=== PATIENT | female | born 2000 | race Caucasian/White ===

== ENCOUNTER 2021-08-09 14:20 | Emergency (ER) | payer OTHER ==
[~2021-08-09] VITALS: Ht 172.7 cm; Wt 79.4 kg
[2021-08-09 14:45] LABS: Source, Urine Clean Catch
[2021-08-09 14:48] LABS: Appearance, Urine Clear (Clear); Bilirubin, Urine Neg (Neg); Blood, Urine 3+ (Neg); Color, Urine Yellow (P-Yellow); Glucose Qualitative, Urine Neg (Neg); Ketones, Urine Neg (Neg); Leukocyte Esterase, Urine 1+ (Neg); Nitrite, Urine Neg (Neg); Protein, Urine Neg (Neg); Urobilinogen, Urine NORM (Normal)
[2021-08-09 14:57] LABS: Bacteria Few /hpf; Mucus Light (0-Heavy); Squamous Epithelial Cells Few /hpf (Few)
[2021-08-09] MEDS ORDERED: MIRENA1 EAC1 IY (17:23)
[2021-08-09 19:07] LABS: Candida species (DNA Probe) Positive (NEGATIVE); G. vaginalis (DNA Probe) Positive (NEGATIVE); T. vaginalis (DNA Probe) Negative (NEGATIVE)
[2021-08-09] MEDS ORDERED: FLUC150A PO (19:30)
== END 2021-08-09 19:43 | disposition home or self-care (01) ==
LOC: ER 14:20
PROVIDERS: Physician Assistant
DX: T83.9XXA Unspecified complication of genitourinary prosthetic device, implant and graft, initial encounter (principal); B37.3 Candidiasis of vulva and vagina; Z88.2 Allergy status to sulfonamides
CPT/HCPCS: 76830; 76856; 81001; 81025; 87086; 87480; 87510; 87660; 99284-25; A9270